=== PATIENT | female | born 1955 | race Caucasian/White ===

== ENCOUNTER 2021-05-01 06:49 | Day surgery (SDC) | payer MEDICARE, OTHER ==
[2021-05-01] MEDS ORDERED: Lactated Ringers 1,000 ML IV SCH (07:00)
[2021-05-01] MEDS ORDERED: Sodium Chloride 0.9% 10 ML Syringe FLUSH PRN (07:00)
[2021-05-01] MEDS ORDERED: EPINEPHrine 1:10,000 1 MG/10 ML Syringe ONE (08:02)
[2021-05-01] MEDS ORDERED: Midazolam 1 MG/ML 2 ML SDV ONE (08:08)
[2021-05-01] MEDS ORDERED: Propofol 200 MG/20 ML SDV ONE (08:08)
--- NOTE | 2021-05-01 09:13 | PCM.OPNOTE ---
- General Post-Op/Procedure Note Date of Surgery/Procedure: 05/01/21 Operative Procedure(s): Colonoscopy Anesthesia Technique: MAC Primary Surgeon: Mariam Baron Condition: Good Free Text/Narrative:: INFORMED CONSENT: Patient is here today for elective colonoscopy. All aspects of this procedure have been discussed with the patient. All possible complications also, including possibility of perforation, infection, pain, bleeding and unknown complications. In the event of perforation patient may need to have abdominal exploration, colon resection, colostomy and even was discussed. Anesthetic complications were handled by anesthesia department. The patient understands fully well. Patient did not have any further questions for me at the end of my interview. The patient wishes for me to proceed. PREOPERATIVE DIAGNOSIS/INDICATIONS: [Screening colonoscopy family history of colon cancer] POSTOPERATIVE DIAGNOSIS: [Normal colonoscopy except for few diverticuli in the sigmoid colon] INSTRUMENT USED: [employer] videocolonoscope. ASA CLASSIFICATION: [2] ANESTHESIA: Continuous EKG, oximetry and intermittent blood pressure and respiratory monitoring were performed throughout the procedure. IV Versed and Fentanyl were administered. PROCEDURE PERFORMED: Colonoscopy POSITIONS OF PATIENT: Left lateral. RECTUM: Normal. SIGMOID COLON: Normal except for few diverticuli without complication. DESCENDING COLON: Normal. SPLENIC FLEXURE: Normal. TRANSVERSE COLON: Normal. HEPATIC FLEXURE: Normal. ASCENDING COLON: Normal. CECUM: Normal. ILEOCECAL VALVE: Normal. BIOPSY: None. TOLERANCE: Excellent. COMPLICATIONS: None.
== END 2021-05-01 10:05 | disposition home or self-care (01) ==
LOC: KA.SDS 06:49
PROVIDERS: ATTEND Family Medicine
DX: Z12.11 Encounter for screening for malignant neoplasm of colon (principal); I10 Essential (primary) hypertension; E78.00 Pure hypercholesterolemia, unspecified; E66.01 Morbid (severe) obesity due to excess calories; J45.909 Unspecified asthma, uncomplicated; Z80.0 Family history of malignant neoplasm of digestive organs; Z79.899 Other long term (current) drug therapy; Z91.018 Allergy to other foods; Z68.35 Body mass index [BMI] 35.0-35.9, adult
CPT/HCPCS: G0105; J2250; J2704; J7120; 00812